=== PATIENT | male | born 1980 | race Two or more races ===

== ENCOUNTER 2017-01-05 21:21 | Emergency (ER) | payer MEDICAID, OTHER ==
[2017-01-05] MEDS ORDERED: CEPHALEXIN 500 MG CAPSULE ONE (23:51)
== END 2017-01-06 00:04 | disposition home or self-care (01) ==
LOC: ED 21:21
DX: L03.211 Cellulitis of face (principal)
CPT/HCPCS: 99283 ×2; A9270